=== PATIENT | female | born 1960 | race African-American/Black ===

== ENCOUNTER 2025-03-02 19:12 | Inpatient (IN) | payer OTHER ==
[~2025-03-02] VITALS: Ht 162.6 cm; Wt 97.5 kg
[2025-03-02 19:51] LABS: BASOPHILS % 0.3 % (0.0-2.0); EOSINOPHILS % 0.7 % (0.0-5.0); HEMATOCRIT. 31.1 % (36.0-48.0); LYMPHOCYTES % 21.1 % (20.0-50.0); MEAN CORPUSCULAR HEMOGLOBIN 26.3 pg (28.0-32.0); MEAN CORPUSCULAR HGB CONC 32.3 g/dL (31.0-37.0); MEAN CORPUSCULAR VOLUME 81.4 fL (81.0-99.0); MEAN PLATELET VOLUME 10.2 fl (7.4-10.4); MONOCYTES % 5.2 % (2.0-8.0); NEUTROPHILS % 72.7 % (40.0-76.0); PLATELET 221 x1000/uL (130-400); RED BLOOD CELL COUNT 3.81 mill/uL (4.2-5.4); RED CELL DISTRIBUTION WIDTH 16.3 % (11.6-14.6); WHITE BLOOD COUNT 13.6 x1000/uL (4.5-11.0)
[2025-03-02 20:02] LABS: CARBON DIOXIDE 31 mEq/L (21-32); CHLORIDE 104 mEq/L (98-107); POTASSIUM 4.1 mEq/L (3.5-5.1); SODIUM 143 mEq/L (136-145)
[2025-03-02 20:03] LABS: CALCIUM 10.3 mg/dL (8.7-10.4)
[2025-03-02 20:07] LABS: CREATININE 1.8 mg/dL (0.6-1.0); GLUCOSE 266 mg/dL (70-105)
[2025-03-02 20:08] LABS: UREA NITROGEN BLOOD 39 mg/dL (9-23)
[2025-03-02 20:11] LABS: TROPONIN I HIGH SENSITIVITY 62 ng/L (3.0-34)
[2025-03-02] MEDS: ASPIRIN 325MG EC TABLET PO ONE (20:49)
[2025-03-02] MEDS: CLOPIDOGREL 75MG TABLET PO ONE (20:51)
[2025-03-02] MEDS: NITROGLYCERIN 0.4MG TABLET SL SL ONE (21:47)
[2025-03-02 22:27] LABS: INR 0.9; PARTIAL THROMBOPLASTIN TIME 22.8 sec (23.4-31.0); PROTHROMBIN TIME 10.1 sec (9.6-11.0)
[2025-03-02] MEDS: HYDRALAZINE 20MG/ML VIAL IV SCH (23:29)
[2025-03-03] VITALS (8 sets, daily range): BP systolic 126–201; BP diastolic 60–70; PULSE 52–70; RESP 16–20; TEMP 35.9–36.6; O2SAT 97–100
[2025-03-03] MEDS ORDERED: ATOR-2 PO (00:58)
[2025-03-03] MEDS ORDERED: METO-411 PO (00:58)
[2025-03-03] MEDS ORDERED: HYDR-4001 PO (00:58)
[2025-03-03] MEDS ORDERED: LISI40TA13 PO (00:58)
[2025-03-03] MEDS ORDERED: FURO20TA4 PO (00:58)
[2025-03-03] MEDS ORDERED: ALLO100T PO (00:58)
[2025-03-03] MEDS ORDERED: NALOXONE HCL 0.4MG/ML VIAL IV PRN (01:45)
[2025-03-03] MEDS: CLONIDINE 0.1MG TABLET PO PRN (01:49)
[2025-03-03] MEDS: HYDROCODONE/ACETAMINOPHEN 5/325MG TABLET PO PRN (01:50)
[2025-03-03] MEDS: INSULIN GLARGINE 100 UNITS/ML SUBCUT SCH (01:56)
[2025-03-03] MEDS ORDERED: HYDRALAZINE 20MG/ML VIAL IV PRN (07:00)
[2025-03-03] MEDS: FUROSEMIDE 40MG/4ML VIAL IV SCH (09:55)
[2025-03-03] MEDS: METOPROLOL TARTRATE 50MG TABLET PO SCH (09:55)
[2025-03-03] MEDS: ISOSORBIDE MONONITRATE 60MG TABLET SR 24HR PO SCH (09:55)
[2025-03-03] MEDS: LISINOPRIL 40MG TABLET PO SCH (09:55)
[2025-03-03] MEDS: AMLODIPINE 10MG TABLET PO SCH (10:15)
[2025-03-03 13:39] LABS: TROPONIN I HIGH SENSITIVITY 95 ng/L (3.0-34)
[2025-03-03] MEDS ORDERED: DEXTROSE 50% WATER 50ML SYRINGE IV PRN (16:15)
[2025-03-03] MEDS: ENOXAPARIN 100MG/ML SYR SUBCUT SCH (16:58)
[2025-03-03] MEDS: INSULIN LISPRO 100 UNITS/ML SUBCUT SCH (17:09)
[2025-03-03] MEDS: BLOOD SUGAR DIAGNOSTIC STRIP TEST SCH (17:16)
[2025-03-03] MEDS: ATORVASTATIN CALCIUM 40MG TABLET PO SCH (21:59)
[2025-03-04] VITALS: BP 148/60; PULSE 68; RESP 18; TEMP 36.7; O2SAT 98
[2025-03-04 03:45] LABS: CLARITY URINE CLEAR (CLEAR); COLOR URINE YELLOW (YELLOW); GLUCOSE URINE NEGATIVE (NEGATIVE); KETONES URINE NEGATIVE (NEGATIVE); LEUKOCYTE ESTERASE URINE NEGATIVE (NEGATIVE); NITRITE URINE NEGATIVE (NEGATIVE); OCCULT BLOOD URINE NEGATIVE (NEGATIVE); PROTEIN URINE 2+ (NEGATIVE); SPECIFIC GRAVITY URINE 1.012 (1.005-1.030); UROBILINOGEN URINE 0.2 E.U./dL (0.2-1.0)
[2025-03-04 03:50] LABS: *AMPHETAMINES SCREEN URINE NEGATIVE (NEGATIVE); *BARBITURATES SCREEN URINE NEGATIVE (NEGATIVE); *BENZODIAZEPINES SCREEN URINE NEGATIVE (NEGATIVE); *COCAINE SCREEN URINE NEGATIVE (NEGATIVE); CANNABINOID URINE SCREEN NEGATIVE (NEGATIVE); ECSTASY MDMA SCREEN URINE NEGATIVE (NEGATIVE); METHADONE URINE SCREEN NEGATIVE (NEGATIVE); OPIATES URINE SCREEN NEGATIVE (NEGATIVE); PHENCYCLIDINE URINE SCREEN NEGATIVE (NEGATIVE)
[2025-03-04 04:00] VITALS: BP 152/60; PULSE 61; RESP 18; TEMP 36.6; O2SAT 98
[2025-03-04 04:14] LABS: SQUAMOUS EPITHELIAL CELL URINE FEW /lpf (RARE/1+); WBC URINE 0-2 /hpf (0-2)
[2025-03-04 04:15] LABS: BACTERIA URINE 1+; RBC URINE NONE SEEN /hpf (0-2)
[2025-03-04 08:00] VITALS: BP 185/68; PULSE 62; RESP 17; TEMP 36.1; O2SAT 96
[2025-03-04 09:00] LABS: POTASSIUM 3.9 mEq/L (3.5-5.1)
[2025-03-04 09:01] LABS: CALCIUM 10.8 mg/dL (8.7-10.4)
[2025-03-04 09:06] LABS: CREATININE 1.6 mg/dL (0.6-1.0)
[2025-03-04] MEDS: ASPIRIN 81MG TABLET PO SCH (09:15)
[2025-03-04 12:00] VITALS: BP 144/61; PULSE 51; RESP 15; TEMP 36.1; O2SAT 98
[2025-03-04 13:38] VITALS: BP 144/61; PULSE 61; TEMP 97; O2SAT 98
== END 2025-03-04 14:05 | disposition home or self-care (01) | DRG 280 ==
LOC: ER 19:12 → EDBEDREQ 19:21 → 6WST 20:47 → EDBEDREQTM 20:57 → EDBEDREQ 20:57 → ENRESERV 21:14
PROVIDERS: ADMIT Internal Medicine; ATTEND Internal Medicine
DX: I11.0 Hypertensive heart disease with heart failure (principal); I50.43 Acute on chronic combined systolic (congestive) and diastolic (congestive) heart failure; I21.A1 Myocardial infarction type 2; N17.0 Acute kidney failure with tubular necrosis; I16.1 Hypertensive emergency; E66.9 Obesity, unspecified; E11.9 Type 2 diabetes mellitus without complications; I48.91 Unspecified atrial fibrillation; Z79.01 Long term (current) use of anticoagulants; Z68.36 Body mass index [BMI] 36.0-36.9, adult
CPT/HCPCS: 36415; 71045; 80048; 80305; 81003; 82962; 83036; 83735; 83880; 84484; 85025; 93005; 93306; 99291; A4606; J0360; J1650; J1815; J1940

== ENCOUNTER 2025-03-04 17:50 | Emergency (ER) | payer OTHER ==
[~2025-03-04] VITALS: Ht 162.6 cm; Wt 77.0 kg
[~2025-03-04 17:50] MED LIST: ALLO100T PO; ATOR-2 PO; FURO20TA4 PO; HYDR-4001 PO; LISI40TA13 PO; METO-411 PO
[2025-03-04 17:51] VITALS: O2SAT 99
[2025-03-04] MEDS: DILTIAZEM HCL 5MG/ML 5ML VIAL IV ONE (18:57)
[2025-03-04 19:38] LABS: BASOPHILS % 0.5 % (0.0-2.0); EOSINOPHILS % 0.4 % (0.0-5.0); HEMATOCRIT. 31.3 % (36.0-48.0); HEMOGLOBIN. 10.2 g/dL (12.0-16.0); LYMPHOCYTES % 22.2 % (20.0-50.0); MEAN CORPUSCULAR HEMOGLOBIN 26.3 pg (28.0-32.0); MEAN CORPUSCULAR HGB CONC 32.5 g/dL (31.0-37.0); MEAN PLATELET VOLUME 10.4 fl (7.4-10.4); NEUTROPHILS % 69.9 % (40.0-76.0); PLATELET 221 x1000/uL (130-400); RED BLOOD CELL COUNT 3.86 mill/uL (4.2-5.4); RED CELL DISTRIBUTION WIDTH 16.2 % (11.6-14.6); WHITE BLOOD COUNT 18.3 x1000/uL (4.5-11.0)
[2025-03-04 19:41] LABS: POTASSIUM 3.6 mEq/L (3.5-5.1)
[2025-03-04 19:47] LABS: CREATININE 1.8 mg/dL (0.6-1.0)
[2025-03-04 20:01] LABS: PARTIAL THROMBOPLASTIN TIME 26.4 sec (23.4-31.0); PROTHROMBIN TIME 10.6 sec (9.6-11.0)
[2025-03-04 20:46] LABS: CLARITY URINE CLEAR (CLEAR); COLOR URINE YELLOW (YELLOW); GLUCOSE URINE NEGATIVE (NEGATIVE); KETONES URINE NEGATIVE (NEGATIVE); LEUKOCYTE ESTERASE URINE NEGATIVE (NEGATIVE); NITRITE URINE NEGATIVE (NEGATIVE); OCCULT BLOOD URINE NEGATIVE (NEGATIVE); PROTEIN URINE 3+ (NEGATIVE); SPECIFIC GRAVITY URINE 1.013 (1.005-1.030); UROBILINOGEN URINE 0.2 E.U./dL (0.2-1.0)
[2025-03-04 20:53] LABS: BACTERIA URINE NONE SEEN; RBC URINE NONE SEEN /hpf (0-2); SQUAMOUS EPITHELIAL CELL URINE FEW /lpf (RARE/1+); WBC URINE 0-2 /hpf (0-2)
[2025-03-04] MEDS: DILTIAZEM HCL 60MG TABLET PO ONE (21:12)
[2025-03-04] MEDS: FUROSEMIDE 40MG/4ML VIAL IVP ONE (21:32)
[2025-03-04] MEDS: ENOXAPARIN 60MG/0.6ML SYR SUBCUT ONE (21:42)
[2025-03-04 21:44] LABS: TROPONIN I HIGH SENSITIVITY 422 ng/L (3.0-34)
[2025-03-04 23:50] VITALS: BP 127/93; PULSE 74; RESP 18; TEMP 37.8; O2SAT 97
== END 2025-03-04 23:57 | disposition short-term general hospital (02) ==
LOC: ER 17:50 → EDBEDREQSVC 21:58 → EDBEDREQ 21:58 → EDBEDREQTM 21:58 → ER 23:57
DX: I48.91 Unspecified atrial fibrillation (principal); R79.89 Other specified abnormal findings of blood chemistry; I11.0 Hypertensive heart disease with heart failure; I50.9 Heart failure, unspecified; Z79.899 Other long term (current) drug therapy
CPT/HCPCS: 80048; 81003; 83880; 85025; 85610; 85730; 84484; 36415; 71045; 93005; 96372; 96374; 96375; 99291; J3490; J1650; J1940; Z7610 ×2